=== PATIENT | female | born 1985 ===

== ENCOUNTER → 2020-11-28 | Outpatient (CLI) | payer OTHER | END | disposition home or self-care (01) | LOC: OFIC 805 10:45 | PROVIDERS: ATTEND Otolaryngology | DX: J30.89 Other allergic rhinitis (principal); H61.23 Impacted cerumen, bilateral ==

== ENCOUNTER 2020-12-29 11:14 | Outpatient (CLI) | payer OTHER | END 2020-12-29 13:00 | disposition home or self-care (01) | LOC: OFIC 805 11:14 | PROVIDERS: ATTEND Otolaryngology | DX: J30.89 Other allergic rhinitis (principal) ==